=== PATIENT | male | born 1960 | race Caucasian/White ===

== ENCOUNTER 2018-08-19 11:38 | Observation (INO) | payer OTHER ==
[2018-08-18 15:21] LABS: BASOPHILS # (AUTO) 0.1 (0.0-0.1); BASOPHILS % 1.2 % (0.0-1.0); EOSINOPHILS # (AUTO) 0.1 (0.0-0.4); EOSINOPHILS % 3.2 % (0.0-6.0); HEMOGLOBIN 14.8 g/dL (14.0-18.0); LYMPHOCYTES # (AUTO) 1.3 (1.0-3.2); MEAN CORPUSCULAR HEMOGLOBIN 31.3 pg (28-32); MEAN CORPUSCULAR HGB CONC 34.4 g/dL (31-35); MEAN CORPUSCULAR VOLUME 90.9 fL (81-99); MONOCYTES # (AUTO) 0.7 (0.2-0.8); MONOCYTES % 16.6 % (4.4-11.3); NEUTROPHILS # (AUTO) 1.9 (2.1-6.9); NEUTROPHILS % 46.8 % (38.7-80.0); PLATELET COUNT 183 x10e3/uL (140-360); RED BLOOD COUNT 4.73 x10e6/uL (4.3-5.7); RED CELL DISTRIBUTION WIDTH 13.3 % (11.7-14.4)
[2018-08-18 15:34] LABS: INR 0.9; PROTHROMBIN TIME 12.6 seconds (11.9-14.5)
[2018-08-18 16:04] LABS: ALANINE AMINOTRANSFERASE 23 IU/L (0-55); ALBUMIN/GLOBULIN RATIO 1.2 (0.8-2.0); ALKALINE PHOSPHATASE 71 IU/L (40-150); ANION GAP 10.9 mmol/L (8-16); BLOOD UREA NITROGEN 12 mg/dL (7-26); BUN/CREATININE RATIO 10 (6-25); CALCIUM 9.3 mg/dL (8.4-10.2); CARBON DIOXIDE 30 mmol/L (22-29); CHLORIDE 99 mmol/L (98-107); CREATININE, SERUM 1.22 mg/dL (0.72-1.25); EST GLOMERULAR FILTRATION RATE > 60 ML/MIN (60-); GLUCOSE 79 mg/dL (74-118); POTASSIUM 3.9 mmol/L (3.5-5.1); SODIUM 136 mmol/L (136-145)
[2018-08-19] VITALS (12 sets, daily range): BP systolic 89–107; BP diastolic 61–69
[~2018-08-19] VITALS: Ht 193 cm; Wt 90.3 kg
[~2018-08-19 11:38] MED LIST: ASPIR 8181 MG PO; CLOPIDOGREL75 MG PO; LISINOPRIL-HCT1 EAC2 PO; PRAVASTATIN SOD20 MG PO
[2018-08-19] MEDS ORDERED: ALPRAZOLAM 0.5 MG TAB ONE (12:01)
[2018-08-19] MEDS ORDERED: DIPHENHYDRAMINE HCL 25 MG CAP ONE (12:02)
[2018-08-19] MEDS ORDERED: VERAPAMIL HCL 2.5 MG/ML 2 ML VIAL ONE (13:14)
[2018-08-19] MEDS ORDERED: MIDAZOLAM HCL 2 MG/2 ML VIAL ONE (13:14)
[2018-08-19] MEDS ORDERED: HEPARIN SOD/SOD CHLORIDE 2,000 ML ONE (13:15)
[2018-08-19] MEDS ORDERED: SODIUM CHLORIDE 0.9% 1000ML 1,000 ML ONE (13:15)
[2018-08-19] MEDS ORDERED: LIDOCAINE HCL 2% LOCAL 20 ML VIAL ONE (13:15)
[2018-08-19] MEDS ORDERED: IOPAMIDOL 370 MG/ML 200 ML INFUS..BTL INJ ONE (13:15)
[2018-08-19] MEDS ORDERED: FENTANYL CITRATE/PF 100MCG/2 ML INJ ONE (13:15)
[2018-08-19] MEDS ORDERED: EPTIFIBATIDE 10 ML ONE (13:39)
[2018-08-19] MEDS ORDERED: TICAGRELOR 90 MG TABLET ONE (13:50)
[2018-08-19] MEDS ORDERED: ASPIRIN 325 MG TAB ONE (13:50)
--- NOTE | 2018-08-19 14:05 | NUR ---
1406 Received report from Zhen Lee.Identifier x2. [facility] with x1 stent RCA per Dr Barrios. No gross issue pain pallor pressure or dysrhythmia Rt Radial approach. No bleeding and hematoma Back to baseline orientation. Respiration shallow and regular. 100% RA.Abdomen soft and non tender Denies necessity to defecate or urinate. Bilateral femoral pulses present. Iv w/o s/s infiltration. Infusing at 75cchr. For dc at 7pm. Assist with po intake. TR band air removal started at 1800pm and completed at 1900pm. Sterile 2x2 and Coban dressing with splint applied. Called report to Taisha Lee Pt has copy of POC and aware of importance of f/o care.\Transfer to Rm100 post verbal phone handoff. 1900 Transfer to floor care per stretcher stable. Rt TR band site remain intact w/o hematoma or oozing. Has copies of POC.Pt knows importance of f/o care. Vs and Monitor remain stable Denies CP or SOB. Neuro vascular function to rt arm remains intact. donell/rafiq
--- NOTE | 2018-08-19 15:00 | Operative Report ---
DATE OF PROCEDURE: 08/19/2018 SURGEON: Sergio Barrios MD INDICATIONS: Coronary artery disease, abnormal stress test. PROCEDURES PERFORMED: 1. Left heart catheterization, selective coronary angiography. 2. PTCA and stent placement in the proximal right coronary artery. 3. Deployment of right wrist TR band. COMPLICATIONS: None. RECOMMENDATIONS: Dual antiplatelet therapy for at least 6 months. DESCRIPTION OF PROCEDURE: Access obtained in the right radial artery. A 6-Frisian sheath was placed. Diagnostic coronary angiogram revealed patent stent in the left anterior descending artery. Circumflex had mild disease. Left main, 20% stenosis. Right coronary artery; ostial 80% stenosis, dominant vessel. A decision was made to intervene on the right coronary artery. The patient was given intravenous heparin and Integrilin anticoagulation. A JR4 guide was used to cannulate the right coronary artery. Primary stent 3.0 x 12 mm Resolute post dilated with a 3.5 mm balloon. Excellent end result, less than 10% residual stenosis, SUKUMAR-3 flow. No complications. Right wrist guide and sheath were removed. TR band applied. The patient was discharged home same day. Sergio Barrios MD [facility] /[id number]
--- NOTE | 2018-08-19 17:05 | NUR ---
885 Report to Rosa Marie. NO active CP or SOB. Rt TR band off and splint in place Normal neuro vascular function. No gross issues pain pallor pressure or dysrhythmia.Transported to floor care per stretcher tele in place. at bedside. Has copies dc papers. Aware of importance f/o up care 2wks Dr Barrios. ds/rn
--- NOTE | 2018-08-19 17:20 | NUR ---
RECEIVED PATIENT FROM [employer]GR[employer]. PATIENT A/O X3, EVEN RESPIRATIONS, NO S/S OF DISTRESS. BOWEL SOUNDS ACTIVE. NO EDEMA. PATIENT AMBULATES WITH STANDBY ASSIST. SPLINT IN PLACE ON RIGHT ARM AND IS INTACT. LEFT WRIST 20 GAUGE IV SL INTACT/PATENT. AT BEDSIDE. VITAL SIGNS STABLE. CALL LIGHT IN REACH, BED LOW, WHEELS LOCKED, WILL CONTINUE TO MONITOR PATIENT.
--- NOTE | 2018-08-19 19:38 | NUR ---
Received report from [place] con[place].assessment done.tele showing [id number].stable condition.no chest pain voiced.iv removed and applied pressure dressing.tele box returned to dept.pt off the unit in a wheel chair.discharge instruction given.verbalized understanding.sending all the belongings with pt.
== END 2018-08-19 19:20 | disposition home or self-care (01) ==
LOC: CATH LAB 11:38 → MED/SURG 17:32
PROVIDERS: ADMIT Internal Medicine Interventional Cardiology; ATTEND Internal Medicine Interventional Cardiology
DX: I25.118 Atherosclerotic heart disease of native coronary artery with other forms of angina pectoris (principal); Z01.812 Encounter for preprocedural laboratory examination; Z79.82 Long term (current) use of aspirin; Z88.5 Allergy status to narcotic agent; Z83.3 Family history of diabetes mellitus; I10 Essential (primary) hypertension; E78.5 Hyperlipidemia, unspecified; E78.01 Familial hypercholesterolemia
CPT/HCPCS: 36415; 80053; 85025; 85610; 92928; 93458; C1769; C1874; C1887; G0378; J1327; J2001; J2250; J7030; Q9967